=== PATIENT | male | born 1945 | race Caucasian/White ===

== ENCOUNTER 2016-11-14 15:34 | Emergency (ER) | payer MEDICARE, BC ==
[2016-11-14] MEDS ORDERED: oxyCODONE/Acetamin 5/325 MG* TAB PO ONE (16:31)
--- NOTE | 2016-11-14 17:03 | RAD ---
Indication: Fell November 03, 2016 and hospitalized for extra-axial bleed. Comparison: November 09, 2016 and June 29, 2016 CT exams. Technique: Noncontrast CT vertex of skull through foramen magnum. Report: No significant change in small volume of subdural hematoma along the RIGHT margin of the interhemispheric falx and falx tentorium compared with the November 01, 2016 exam. Negative for mass effect. No additional extra or intra-axial hematoma evident. Mild prominence of the cerebral sulci and cerebellar fissures reflecting atrophy. Unremarkable ventricles and basal cisterns. Negative for romero matter white matter obscuration or mass effect. Unchanged collapsed RIGHT ocular globe. Unremarkable LEFT orbital contents. No fracture or suspicious lesion of the calvarium or skull base. Negative for scalp hematoma. Clear visualized paranasal sinuses and mastoid air spaces. IMPRESSION: Stable small extra-axial hematoma along the RIGHT margin of the interhemispheric falx and along the falx tentorium. Negative for mass effect. No new intracranial hemorrhage evident.
[2016-11-14 17:35] VITALS: BP 140/78
--- NOTE | 2016-11-14 17:47 | ED ---
I, Escobar,Natalie, scribed for Kwame Hicks MD on 11/14/16 at 1628 . Headache - HPI Summary HPI Summary: This 70 y/o male presents to ED for persistent GUTIERREZ since his fall and admission for brain bleed since 11/03/2016. The location of the pain is occipital region. He slipped and fell on [address] and fell backward. he denies any slurred speech, blurred vision, seizure-like activity, LOC, or numbness/weakness since the fall. Pt was seen again on 11/09/2016 but was noted with improved brain bleed via CT Brain. He reports that GUTIERREZ got worse since 2 days ago. Pt was seen by Dr. Olivo prescribed 2 tabs of hydrocodone q6h. Last dose was taken 1100 AM this morning. He states that hydrocone only last him about 2 hours, and requesting pain control at the time of initial evaluation. Pt reports remote hx of TIA 20 years ago and DM, but denies any CAD. - History Of Current Complaint Chief Complaint: EDHeadache Stated Complaint: HEADACHE Time Seen by Provider: 11/14/16 16:10 Hx Obtained From: Patient, Family/Human Resources Professional - present at bedside - Allergies/Home Medications Allergies/Adverse Reactions: Allergies Allergy/AdvReac Type Severity Reaction Status Date / Time Banana Allergy CLUSTER Verified 11/03/16 10:44 HEADACHE Chocolate Allergy CLUSTER Verified 11/03/16 10:44 HEADACHE Doxepin Allergy Unknown Verified 11/03/16 10:44 Reaction Details Ezetimibe [From Zetia] Allergy Unknown Verified 11/03/16 10:44 Reaction Details Gabapentin [From Neurontin] Allergy Unknown Verified 11/03/16 10:44 Reaction Details Onion Allergy Headache Verified 11/03/16 10:44 Statins AdvReac Unknown Muscle Ache Verified 11/03/16 10:44 Metformin AdvReac Unknown Verified 11/03/16 10:44 Reaction Details PMH/Surg Hx/FS Hx/Imm Hx Endocrine/Hematology History: Reports: Hx Diabetes - Type II Denies: Hx Sickle Cell Disease, Hx Thyroid Disease Cardiovascular History: Reports: Hx Hypertension, Other Cardiovascular Problems/ Disorders - TDDM II/TIA (20YRS.AGO PER PT) Denies: Hx Angina, Hx Coronary Artery Disease, Hx Hypercholesterolemia, Hx Pacemaker/ICD Respiratory History: Denies: Hx Asthma Musculoskeletal History: Reports: Hx Arthritis - LEGS AND HIPS, Other Musculoskeletal History - Bone spurs in neck Sensory History: Reports: Hx Cataracts - BILATERAL TEENAGER, Hx Contacts or Glasses - GLASSES, Hx Eye Prosthesis - RIGHT EYE, Hx Glaucoma - RIGHT EYE Denies: Hx Hearing Aid Opthamlomology History: Reports: Hx Cataracts - BILATERAL TEENAGER, Hx Contacts or Glasses - GLASSES, Hx Eye Prosthesis - RIGHT EYE, Hx Glaucoma - RIGHT EYE Neurological History: Reports: Hx Headaches - AVOIDS FOODS AND TAKES ROUTINE MEDICATION FOR, Hx Migraine - ON DAILY MED, OCCASSIONALLY STILL GETS GUTIERREZ, Hx Transient Ischemic Attacks (TIA) Psychiatric History: Denies: Hx Panic Disorder - Surgical History Surgery Procedure, Year, and Place: 1949s TONSILLECTOMY. [place]. 2011 [place]t EYE REMOV[place]. 1969 Rt ANKLE-FRACTURED [place]. 04/2016 RT HIP TOTAL [facility]. 06/2016 LT HIP TOTAL Hx Anesthesia Reactions: No Infectious Disease History: No Infectious Disease History: Denies: Traveled Outside the [place] in Last 30 Days - Family History Known Family History: Positive: None Negative: Cardiac Disease, Hypertension, Diabetes Family History: No FHx of malignant hyperthermia. No FHx of anesthesia reaction - Social History Alcohol Use: None Hx Substance Use: No Substance Use Type: Reports: None Hx Tobacco Use: No Smoking Status (MU): Never Smoked Tobacco Have You Smoked in the Last Year: No Review of Systems Negative: Fever Positive: Other - Right eye loss due to glaucoma Positive: Other - no back pain Positive: Headache. Negative: Weakness, Numbness, Slurred Speech Negative: Anxious, Depressed All Other Systems Reviewed And Are Negative: Yes Physical Exam - Summary Physical Exam Summary: The patient is well-nourished in no acute distress and in no acute pain. The skin is warm and dry and skin color reflects adequate perfusion. HEENT: Healed abrasion on occipital region. 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 Pupil is equal and reactive at left eye. The conjunctiva of left eye is clear and without drainage. Nares are patent and without drainage. Mouth reveals moist mucous membranes and the throat is without erythema and exudate. The external ears are intact. The ear canals are patent and without drainage. The tympanic membranes are intact. Neck is supple with full range of motion and non-tender. There are no carotid bruits. There is no neck vein distension. Respiratory: Chest is non-tender. Lungs are clear to auscultation and breath sounds are symmetrical and equal. Cardiovascular: Hear is regular rate and rhythm. There is no murmur or rub auscultated. There is no peripheral edema and pulses are symmetrical and equal. Abdomen: The abdomen is soft and non-tender. There are normal bowel sounds heard in all four quadrants and there is no organomegaly palpated. Musculoskeletal: There is no back pain noted. Extremities are non-tender with full range of motion. There is good capillary refill. There is no peripheral edema or calf tenderness elicited. Neurological: Patient is alert and oriented to person, place and time. The patient has symmetrical motor strength in all four extremities. Cranial nerves are grossly intact. Deep tendon reflexes are symmetrical and equal in all four extremities. Psychiatric: The patient has an appropriate affect and does not exhibit any anxiety or depression. Triage Information Reviewed: Yes Vital Signs On Initial Exam: Initial Vitals Temp Pulse Resp BP Pulse Ox 97.8 F 87 16 141/72 100 11/14/16 15:36 11/14/16 15:36 11/14/16 15:36 11/14/16 15:36 11/14/16 15:36 Vital Signs Reviewed: Yes Diagnostics - Vital Signs Vital Signs Temp Pulse Resp BP Pulse Ox 11/14/16 15:36 97.8 F 87 16 141/72 100 - Laboratory Lab Statement: Any lab studies that have been ordered have been reviewed, and results considered in the medical decision making process. - CT Brain CT Interpretation: No Acute Changes - Stable small extra-axial hematoma along the RIGHT margin of the interhemispheric falx and along the falx tentorium. Negative for mass effect. No new intracranial hemorrhage evident. CT Interpretation Completed By: Radiologist Headache Course/Dx - Course Assessment/Plan: Pt presents with increased GUTIERREZ since subdural hematoma s/p fall on 11/03/2016. Pt was admitted for observation and discharged when subdural hematoma appeared stable. Pt presents again today with increased GUTIERREZ. CT Brain was ordered to see if there is any enlargement of hematoma. CT Brain indicated stable subdural hematoma. Pain med will be changed and discharged with outpatient f/u. - Diagnoses Differential Diagnosis/HQI/PQRI: Subdural Hematoma - expanding or mass effect, Subarachnoid Hemorrhage Provider Diagnoses: subdural hematoma, stable Discharge - Discharge Plan Condition: Stable Disposition: HOME Prescriptions: oxyCODONE/Acetamin 5/325 MG* [Percocet 5/325 TAB*] 2 tab PO Q6H PRN #40 tab MDD 8 PRN Reason: pain Patient Education Materials: Oxycodone/Acetaminophen (By mouth), Subdural Hematoma (ED), General Headache (ED) Referrals: Jodi Olivo MD [Primary Care Provider] - 2 Days The documentation as recorded by the [employer] accurately reflects the service I personally performed and the decisions made by me, Kwame Hicks MD.
== END 2016-11-14 17:33 | disposition home or self-care (01) ==
LOC: ED 15:34
DX: S06.5X0A Traumatic subdural hemorrhage without loss of consciousness, initial encounter (principal); E11.9 Type 2 diabetes mellitus without complications; W00.0XXA Fall on same level due to ice and snow, initial encounter; Y92.89 Other specified places as the place of occurrence of the external cause; I10 Essential (primary) hypertension; Z86.73 Personal history of transient ischemic attack (TIA), and cerebral infarction without residual deficits; W19.XXXA Unspecified fall, initial encounter; Y92.9 Unspecified place or not applicable
CPT/HCPCS: 70450; 99282; A9270-GY

== ENCOUNTER 2017-04-08 11:50 | Emergency (ER) | payer MEDICARE, BC ==
[2017-04-08 12:25] VITALS: BP 128/77
--- NOTE | 2017-04-08 12:54 | UC ---
Respiratory Complaint HPI - HPI Summary HPI Summary: 71 yo male with diabetes presents with cough x 2 weeks see,ed to start as a tyoical cold now down in his chest some wheezing cough is productive at times - History of Current Complaint Chief Complaint: UCRespiratory Stated Complaint: COUGH CONGESTION Time Seen by Provider: 04/08/17 12:32 Hx Obtained From: Patient Onset/Duration: Gradual Onset, Lasting Weeks Timing: Constant Severity Initially: Mild Severity Currently: Moderate Pain Intensity: 2 Pain Scale Used: 0-10 Numeric Character: Cough: Productive Aggravating Factors: Nothing Alleviating Factors: Nothing Associated Signs And Symptoms: Positive: Wheezing, Nasal Congestion, Sinus Discomfort - Allergies/Home Medications Allergies/Adverse Reactions: Allergies Allergy/AdvReac Type Severity Reaction Status Date / Time Banana Allergy CLUSTER Verified 11/03/16 10:44 HEADACHE Chocolate Allergy CLUSTER Verified 11/03/16 10:44 HEADACHE Doxepin Allergy Unknown Verified 11/03/16 10:44 Reaction Details Ezetimibe [From Zetia] Allergy Unknown Verified 11/03/16 10:44 Reaction Details Gabapentin [From Neurontin] Allergy Unknown Verified 11/03/16 10:44 Reaction Details Onion Allergy Headache Verified 11/03/16 10:44 Statins AdvReac Unknown Muscle Ache Verified 11/03/16 10:44 Metformin AdvReac Unknown Verified 11/03/16 10:44 Reaction Details PMH/Surg Hx/FS Hx/Imm Hx Endocrine History Of: Reports: Diabetes - Type II Denies: Thyroid Disease Cardiovascular History Of: Reports: Cardiac Disorders - "heart flutter", Hypertension Denies: Pacemaker/ICD Respiratory History Of: Denies: Asthma Neurological History Of: Reports: TIA, CVA - TIA, Migraine - ON DAILY MED, OCCASSIONALLY STILL GETS GUTIERREZ - Surgical History Surgical History: Yes Surgery Procedure, Year, and Place: 1950s TONSILLECTOMY. 2010 [place]EL [place]. 2011 Rt EYE REMOVED/[facility]YE [place]. 1969 Rt ANKLE-FRACTURED [place]. 04/2016 RT HIP TOTAL [facility]. 06/2016 LT HIP TOTAL - Family History Known Family History: Negative: Cardiac Disease, Hypertension, Diabetes Family History: No FHx of malignant hyperthermia. No FHx of anesthesia reaction - Social History Alcohol Use: None Substance Use Type: None Smoking Status (MU): Never Smoked Tobacco Have You Smoked in the Last Year: No - Immunization History Most Recent Influenza Vaccination: FALL 2016 Most Recent Tetanus Shot: UP TO DATE Most Recent Pneumonia Vaccination: UP TO DATE Review of Systems Constitutional: Negative Skin: Negative Eyes: Negative ENT: Nasal Discharge Respiratory: Cough Cardiovascular: Negative Gastrointestinal: Negative Genitourinary: Negative Motor: Negative Neurovascular: Negative Musculoskeletal: Negative Neurological: Negative Psychological: Negative All Other Systems Reviewed And Are Negative: Yes Physical Exam Triage Information Reviewed: Yes Appearance: Well-Appearing, No Pain Distress, Well-Nourished Vital Signs: Initial Vital Signs Temp 97.8 F 04/08/17 12:20 Pulse 76 04/08/17 12:20 Resp 16 04/08/17 12:20 BP 128/77 04/08/17 12:20 Pulse Ox 95 04/08/17 12:20 Vital Signs Reviewed: Yes Eyes: Positive: Conjunctiva Clear - left, Other: - right eye enucleated ENT: Positive: Hearing grossly normal, Pharynx normal, Nasal congestion, Nasal drainage, TMs normal. Negative: Tonsillar swelling, Tonsillar exudate, Trismus , Muffled/hoarse voice Dental: Negative: Abscess @ Neck: Positive: Supple, Nontender, No Lymphadenopathy Respiratory: Positive: No respiratory distress, No accessory muscle use, Wheezing - scatterred mild wheezes Cardiovascular: Positive: RRR, No Murmur Musculoskeletal: Positive: ROM Intact, No Edema Neurological: Positive: Alert Psychological Exam: Normal Skin Exam: Normal UC Diagnostic Evaluation - Laboratory O2 Sat by Pulse Oximetry: 95 - normal/not hypoxic Respiratory Course/Dx - Differential Dx/Diagnosis Provider Diagnoses: acute bronchitis Discharge - Discharge Plan Condition: Stable Disposition: HOME Prescriptions: Amoxicillin (*) [Amoxicillin 875 MG (*)] 875 mg PO BID #20 tab Benzonatate CAP* [Tessalon CAP*] 100 - 200 mg PO TID PRN #28 cap PRN Reason: Cough Patient Education Materials: Acute Bronchitis (ED) Referrals: Jodi Olivo MD [Primary Care Provider] - 5 Days (if not better)
== END 2017-04-08 12:45 | disposition home or self-care (01) ==
LOC: UCEAST 11:50
DX: J20.9 Acute bronchitis, unspecified (principal); E11.9 Type 2 diabetes mellitus without complications; I49.8 Other specified cardiac arrhythmias; I10 Essential (primary) hypertension; Z86.73 Personal history of transient ischemic attack (TIA), and cerebral infarction without residual deficits; G43.909 Migraine, unspecified, not intractable, without status migrainosus
CPT/HCPCS: 99212; G0463

== ENCOUNTER 2018-10-11 11:19 | Emergency (ER) | payer MEDICARE, BC ==
[2018-10-11 11:40] VITALS: BP 122/69
--- NOTE | 2018-10-11 13:37 | UC ---
Skin Complaint HPI - HPI Summary HPI Summary: Pt. is a 72 y.o male who presents to the for a painful reddened area to his right posterior leg x 2-3 days. Pt. denies fever, chills, N/V. He is a noninsulin dependent diabetic. Pt. states his glucose has been around 120. Touching area makes sxs worse. Rest makes sxs better. Sxs are mild in severity. - History of Current Complaint Chief Complaint: UCSkin Time Seen by Provider: 10/11/18 11:47 Stated Complaint: LUMP ON HIP Pain Intensity: 1 Pain Scale Used: Adult Non Verbal - Allergy/Home Medications Allergies/Adverse Reactions: Allergies Allergy/AdvReac Type Severity Reaction Status Date / Time banana Allergy Headache Verified 10/11/18 11:51 doxepin Allergy Unknown Verified 10/11/18 11:51 Reaction Details ezetimibe [From Zetia] Allergy Unknown Verified 10/11/18 11:51 Reaction Details gabapentin [From Neurontin] Allergy Unknown Verified 10/11/18 11:51 Reaction Details metformin Allergy Unknown Verified 10/11/18 11:51 Reaction Details onion Allergy Headache Verified 10/11/18 11:51 Vswgfam-Ucl-Afx Reductase Allergy Muscle Ache Verified 10/11/18 11:51 Inhibitor chocolate Allergy Headache Uncoded 10/11/18 11:51 Home Medications: Home Medications Docusate Sodium [Colace] 1 tab PO DAILY 10/11/18 [History Confirmed 10/11/18] Dulaglutide [Trulicity] 0.75 mg SQ WEEKLY 10/11/18 [History Confirmed 10/11/18] Review of Systems All Other Systems Reviewed And Are Negative: Yes Constitutional: Positive: Negative. Negative: Fever, Chills Skin: Positive: Other - redness and pain to right posterior leg Gastrointestinal: Positive: Negative. Negative: Vomiting, Nausea Is Patient Immunocompromised?: No PMH/Surg Hx/FS Hx/Imm Hx Previously Healthy: Yes - Surgical History Surgical History: Yes Surgery Procedure, Year, and Place: 1949s TONSILLECTOMY. 2010 [place]. 2011 Rt EYE REMOVED/[facility]YE [place]. 1969 Rt ANKLE-FRACTURED [place]. 04/2016 RT HIP TOTAL [facility]. 06/2016 [facility] HIP [facility] - Family History Known Family History: Positive: None Negative: Cardiac Disease, Hypertension, Diabetes Family History: No FHx of malignant hyperthermia. No FHx of anesthesia reaction - Social History Occupation: Retired Lives: With Family Alcohol Use: None Substance Use Type: None Smoking Status (MU): Never Smoked Tobacco Have You Smoked in the Last Year: No - Immunization History Most Recent Influenza Vaccination: FALL 2015 Most Recent Tetanus Shot: UP TO DATE Most Recent Pneumonia Vaccination: UP TO DATE Physical Exam Triage Information Reviewed: Yes Appearance: Well-Appearing - Pt. sitting in chair in NAD. Vital Signs: Initial Vital Signs Temp 97.5 F 10/11/18 11:34 Pulse 77 10/11/18 11:34 Resp 18 10/11/18 11:34 BP 122/69 10/11/18 11:34 Pulse Ox 97 10/11/18 11:34 Vital Signs Reviewed: Yes Eyes: Positive: Conjunctiva Clear Neck: Positive: Supple Neurological Exam: Normal Psychological Exam: Normal Skin: Positive: Other - Noted to the proximal right posterior leg there is a roughly 4cm in diameter area of erythema with a small central scab. No induration or flucutance. Area is well demarcated. Redness does note extend to the perineum or scrotum. Course/Dx - Course Course Of Treatment: Pt. presenting for a small wound with surrounding cellulitis to his posterior upper right leg. No evidence of abscess or FB. No involvement of the perineum or scrotum. Pt. is afebrile and well appearing. WIll start on bactrim. Advised warm compresses. To return to in 48 hours for a recheck. Redness was outlined with skin marker. Advised to return sooner or go to ER if redness, swelling, pain worsens, fever, vomiting or if concerned. Pt. understands and agrees with plan. - Differential Diagnoses - Skin Complaint Differential Diagnoses: Abscess, Cellulitis, Contact Dermatitis - Diagnoses Provider Diagnosis: Cellulitis Discharge - Sign-Out/Discharge Documenting (check all that apply): Patient Departure All imaging exams completed and their final reports reviewed: No Studies - Discharge Plan Condition: Good Disposition: HOME Prescriptions: Sulfamethox/Trimethoprim DS* [Bactrim DS 800/160 TAB*] 1 tab PO BID #20 tab Patient Education Materials: Cellulitis (ED) Referrals: Jodi Olivo MD [Primary Care Provider] - Additional Instructions: Please return to urgent care on Monday for a wound check Take antibiotic as directed Apply warm compresses Return to urgent care sooner or go to the ER for increased redness, swelling, pain, fever, vomiting or if concerned - Billing Disposition and Condition Condition: GOOD Disposition: Home
== END 2018-10-11 12:30 | disposition home or self-care (01) ==
LOC: UCEAST 11:19
DX: L03.115 Cellulitis of right lower limb (principal); Z88.8 Allergy status to other drugs, medicaments and biological substances
CPT/HCPCS: 99212; G0463

== ENCOUNTER 2018-10-13 10:20 | Emergency (ER) | payer MEDICARE, BC ==
[2018-10-13 10:39] VITALS: BP 108/57
--- NOTE | 2018-10-13 16:54 | UC ---
HPI Wound/Suture Re-check - History Of Current Complaint Chief Complaint: UCSkin Stated Complaint: FOLLOW-UP Time Seen by Provider: 10/13/18 10:57 Hx Obtained From: Patient Onset/Duration: Gradual Onset, Lasting Days Severity: Mild Pain Intensity: 0 Pain Scale Used: 0-10 Numeric - Allergies/Home Medications Allergies/Adverse Reactions: Allergies Allergy/AdvReac Type Severity Reaction Status Date / Time banana Allergy Headache Verified 10/13/18 10:33 doxepin Allergy Unknown Verified 10/13/18 10:33 Reaction Details ezetimibe [From Zetia] Allergy Unknown Verified 10/13/18 10:33 Reaction Details gabapentin [From Neurontin] Allergy Unknown Verified 10/13/18 10:33 Reaction Details metformin Allergy Unknown Verified 10/13/18 10:33 Reaction Details onion Allergy Headache Verified 10/13/18 10:33 Cxyoyxl-Ylw-Rtb Reductase Allergy Muscle Ache Verified 10/13/18 10:33 Inhibitor chocolate Allergy Headache Uncoded 10/13/18 10:33 PMH/Surg Hx/FS Hx/Imm Hx Previously Healthy: No - NIDDM - Surgical History Surgical History: Yes Surgery Procedure, Year, and Place: 1949s TONSILLECTOMY. 2010 [place]. 2011 Rt EYE REMOVED/[facility] EYE [place]. 1969 Rt ANKLE-FRACTURED [place]. 04/2016 RT HIP TOTAL [facility]. 06/2016 LT HIP TOTAL - Family History Known Family History: Positive: None Negative: Cardiac Disease, Hypertension, Diabetes Family History: No FHx of malignant hyperthermia. No FHx of anesthesia reaction - Social History Alcohol Use: None Substance Use Type: None Smoking Status (MU): Never Smoked Tobacco Have You Smoked in the Last Year: No - Immunization History Most Recent Influenza Vaccination: FALL 2015 Most Recent Tetanus Shot: UP TO DATE Most Recent Pneumonia Vaccination: UP TO DATE Review of Systems All Other Systems Reviewed And Are Negative: Yes Constitutional: Negative: Fever, Chills Skin: Positive: Rash, Other - h/o cellulitis Is Patient Immunocompromised?: No Physical Exam Triage Information Reviewed: Yes Appearance: Well-Appearing, No Pain Distress, Well-Nourished Vital Signs: Initial Vital Signs Temp 97.5 F 10/13/18 10:29 Pulse 84 10/13/18 10:29 Resp 18 10/13/18 10:29 BP 108/57 10/13/18 10:29 Pulse Ox 96 10/13/18 10:29 Eyes: Positive: Conjunctiva Clear Psychological Exam: Normal Skin: Positive: Other - cellulitic area over L buttock without induration, + blanching, non-tender, no drainage noted. no change from marked area, possible increase Course/Dx - Course Course Of Treatment: discussed with attending Dr. Barrett, additional abx keflex added, f/u with PCP or return here for eval Monday - Diagnosis Provider Diagnosis: Cellulitis Discharge - Sign-Out/Discharge Documenting (check all that apply): Patient Departure All imaging exams completed and their final reports reviewed: No Studies - Discharge Plan Condition: Good Disposition: HOME Prescriptions: Cephalexin CAP* [Keflex CAP*] 500 mg PO TID #21 cap Patient Education Materials: Cellulitis (ED) Referrals: Jodi Olivo MD [Primary Care Provider] - Additional Instructions: - Added Keflex on with bactrim for coverage - Follow up with primary physician within 2-3 days for re-eval - Go to ER with pain, fever, chills, loose stools - Billing Disposition and Condition Condition: GOOD Disposition: Home
== END 2018-10-13 11:22 | disposition home or self-care (01) ==
LOC: UCEAST 10:20
DX: L03.317 Cellulitis of buttock (principal); Z88.8 Allergy status to other drugs, medicaments and biological substances
CPT/HCPCS: 99212; G0463

== ENCOUNTER 2020-01-16 06:36 | Day surgery (SDC) | payer MEDICARE, BC ==
[~2020-01-16 06:36] MED LIST: Buffered Lidocaine 1% SYRIN* 1 ML/SYRINGE INTRADERM ONE; Lactated Ringers 1000 ML Bag* 1,000 ML IV SCH
[2020-01-16] MEDS ORDERED: Bupivacaine 0.25% SDV* 30 ML ONE (06:57)
[2020-01-16] MEDS ORDERED: Midazolam* 1 MG/ML 2 ML VIAL (2 MG) ONE (07:06)
[2020-01-16] MEDS ORDERED: Propofol* 10 MG/ML 20 ML BTL ONE (07:07)
[2020-01-16] MEDS ORDERED: Lidocaine 2% PF * 5 ML VIAL ONE (07:08)
[2020-01-16] MEDS ORDERED: Acetaminophen TAB* 325 MG PO PRN (07:52)
[2020-01-16] MEDS ORDERED: Ketorolac INJ* 30 MG/ML 1 ML VIAL IV PRN (07:52)
[2020-01-16] MEDS ORDERED: oxyCODONE TAB* 5 MG TAB PO PRN (07:52)
[2020-01-16] MEDS ORDERED: Naloxone* 0.4 MG/ML 1 ML VIAL IV PRN (07:52)
[2020-01-16 08:45] VITALS: BP 121/68
--- NOTE | 2020-01-16 09:35 | OP ---
OPERATIVE REPORT: DATE OF OPERATION: 01/16/20 - [place] DATE OF : 47 SURGEON: Brady Lee MD. LEACH RUNNER: ZOHREH Méndez. ANESTHESIOLOGIST: Dr. Abdi. ANESTHESIA: Local MAC. PRE-OP DIAGNOSIS: Right carpal tunnel syndrome. POST-OP DIAGNOSIS: Right carpal tunnel syndrome. OPERATIVE PROCEDURE: Right open carpal tunnel release. INDICATIONS: Mr. Villarreal has carpal tunnel. We talked about treatment options. He had wanted to proceed with surgery. He understands there is risk associated with any surgery. ESTIMATED BLOOD LOSS: 1 mL. COMPLICATIONS: None. FINDINGS: See above and below. DESCRIPTION OF PROCEDURE: Mr. Villarreal was seen in the preoperative holding area. The correct site, side, and procedure were identified. We came back to the operating room. The arm was prepped and draped in the usual fashion and time- out was performed. The arm was exsanguinated with the Esmarch and the tourniquet was inflated. I had already numbed up the area with 0.25% plain Marcaine. I made a longitudinal incision in the proximal palm. Dissection was carried down through the subcutaneous tissue and palmar fascia. The transverse carpal ligament was released just off the radial aspect of the hook of hamate. The release was completed distally with the tenotomy scissors. Proximally, I released the subcutaneous tissue and retracted that ulnarly. I placed a Tavo retractor and then under direct visualization, released the reminder of the transverse carpal ligament and distal antebrachial fascia with the tenotomy scissors. At this point, everything was looking very good. Release was complete. Wound was irrigated out. Skin was closed with 4-0 nylon suture. The wound was dressed, and he was taken to the recovery room in stable condition. [id number]/CPS #: [id number] [facility]
== END 2020-01-16 08:46 | disposition home or self-care (01) ==
LOC: OREAST 06:36
PROVIDERS: ATTEND Orthopaedic Surgery Hand Surgery
DX: G56.01 Carpal tunnel syndrome, right upper limb (principal); E11.8 Type 2 diabetes mellitus with unspecified complications; Z79.84 Long term (current) use of oral hypoglycemic drugs; E78.5 Hyperlipidemia, unspecified; N40.0 Benign prostatic hyperplasia without lower urinary tract symptoms; I69.892 Facial weakness following other cerebrovascular disease
CPT/HCPCS: J2250; J2704; J3490

== ENCOUNTER 2020-07-04 13:49 | Observation (INO) ==
[2020-07-04] MEDS ORDERED: NS 0.9% 1000 ml BAG 1,000 ML IV ONE (13:58)
[2020-07-04 14:05] LABS: ABS Eosinophils 0.1 10^3/ul (0-0.6); ABS Lymphocytes 1.3 10^3/ul (1.0-4.8); ABS Monocytes 0.4 10^3/ul (0-0.8); ABS Neutrophils 3.3 10^3/ul (1.5-7.7); Eosinophil % 1.5 %; Hematocrit 43 % (42-52); Hemoglobin 14.5 g/dL (14.0-18.0); Lymphocyte % 25.1 %; Mean Corpuscular HGB Conc 33 g/dL (31-36); Mean Corpuscular Hemoglobin 30 pg (27-31); Mean Corpuscular Volume 91 fL (80-94); Mean Platelet Volume 7.5 fL (7.4-10.4); Nucleated Red Blood Cells % 0.1; Platelet Count 167 10^3/uL (150-450); Red Blood Count 4.77 10^6 /uL (4.18-5.48); Red Cell Distribution Width 14 % (10-15)
[2020-07-04 14:35] LABS: Albumin 4.7 g/dL (3.2-5.2); Albumin/Globulin Ratio 1.7 (1-3); Calcium 10.2 mg/dL (8.6-10.3); EGFR African American 83.8 (>60); EGFR Non-African American 69.2 (>60); Globulin 2.8 g/dL (2-4); HDL Cholesterol 84.2 mg/dL; Potassium 4.1 mmol/L (3.5-5.0); Total Bilirubin 0.5 mg/dL (0.2-1.0); Total Protein 7.5 g/dL (6.4-8.9)
[2020-07-04 14:42] LABS: Activated Partial Thrombo Time 32.1 seconds (26.0-38.0); INR 1.1 (0.82-1.09)
[2020-07-04] MEDS ORDERED: Al Hydrox/Mg Hydrox/Simet LIQ 30 ML UDC PO PRN (15:31)
[2020-07-04] MEDS ORDERED: Dextrose 50% Syringe 50 ml 25 GM/50 ML SYRINGE IV PUSH PRN (15:35)
[2020-07-04] MEDS ORDERED: Iodixanol (CONTRAST) 320 MG/ML 100 ML SDV IV ONE (16:04)
[2020-07-04] MEDS: Heparin 5000 UNITS/ML 1 mL VIAL SUBCUT SCH (20:41)
[2020-07-04] MEDS: CMC:Solifenacin 5 mg TAB (NF) PO SCH (20:45)
[2020-07-05 01:50] LABS: Urine Appearance Clear; Urine Bilirubin Negative (Negative); Urine Blood Negative (Negative); Urine Color Straw; Urine Glucose Negative (Negative); Urine Ketones Negative (Negative); Urine Nitrite Negative (Negative); Urine Protein Negative (Negative); Urine Specific Gravity 1.012 (1.010-1.030); Urine Urobilinogen Negative (Negative)
[2020-07-05] MEDS: Heparin 5000 UNITS/ML 1 mL VIAL SUBCUT SCH ×3 (05:19→20:44)
[2020-07-05 06:53] LABS: Albumin 3.9 g/dL (3.2-5.2); Indirect Bilirubin 0.5 mg/dL (0.3-1.0); Total Bilirubin 0.6 mg/dL (0.2-1.0)
[2020-07-05 06:59] LABS: Albumin/Globulin Ratio 1.8 (1-3); Globulin 2.2 g/dL (2-4); HDL Cholesterol 72.2 mg/dL; Total Protein 6.1 g/dL (6.4-8.9)
[2020-07-05] MEDS: Aspirin EC 325 mg TAB.EC PO SCH (10:09)
[2020-07-05] MEDS: CMC:Solifenacin 5 mg TAB (NF) PO SCH (20:48)
[2020-07-06] MEDS: Heparin 5000 UNITS/ML 1 mL VIAL SUBCUT SCH ×2 (06:07→14:10)
[2020-07-06] MEDS: Aspirin EC 325 mg TAB.EC PO SCH (08:48)
[2020-07-06 15:26] VITALS: BP 117/55
== END 2020-07-06 17:50 | disposition home or self-care (01) ==
LOC: ED 13:49 → MEDTELE 13:49
PROVIDERS: ADMIT Internal Medicine; ATTEND Internal Medicine